=== PATIENT | male | born 1990 | race Caucasian/White ===

== ENCOUNTER 2021-09-16 10:09 | Emergency (ER) | payer OTHER ==
[2021-09-16 10:20] VITALS: BP 122/93
--- NOTE | 2021-09-16 10:27 | ED Physician Documentation ---
History of Present Illness - Stated complaint Stated Complaint: CHEMICAL EXPOSURE - Chief complaint Chief Complaint: Exposure - History obtained from History obtained from: Patient - Additonal information Additional information: 31-year-old gentleman, active duty in the [employer]. He he was sprayed by pressurized hydraulic fluid at work to the face and eyes. He is already showered and irrigated. He had burning sensation of the face and eyes but this is improved and he had shortness of breath and this is gone. Review of Systems Constitutional: reports: Reviewed and negative Ears: reports: Reviewed and negative Nose: reports: Reviewed and negative Throat: reports: Reviewed and negative PD PAST MEDICAL HISTORY - Present Medications Home Medications: Ambulatory Orders Medication Instructions Recorded Confirmed No Known Home Medications 09/16/21 09/16/21 - Allergies Allergies/Adverse Reactions: Allergies Allergy/AdvReac Type Severity Reaction Status Date / Time No Known Drug Allergies Allergy Verified 09/16/21 10:17 PD ED PE NORMAL - Vitals Vital signs reviewed: Yes - General General: Alert and oriented X 3, No acute distress - HEENT HEENT: PERRL, EOMI, Pharynx benign - Neck Neck: Supple, no meningeal sign, No bony TTP - Cardiac Cardiac: RRR, No murmur - Respiratory Respiratory: No respiratory distress, Other (Mild expiratory wheeze, declined breathing treatment since he is improving.) - Back Back: No CVA TTP, No spinal TTP - Derm Derm: Normal color, Warm and dry - Extremities Extremities: No deformity, No tenderness to palpate, No edema, No calf tenderness / cord - Neuro Neuro: Alert and oriented X 3, Normal speech Results - Vitals Vitals: Vital Signs - 24 hr 09/16/21 10:17 Temperature 37.0 C Heart Rate 78 Respiratory 19 Rate Blood Pressure 122/93 H O2 Saturation 99 Oxygen O2 Source Room air PD MEDICAL DECISION MAKING - ED course ED course: 31-year-old gentleman with chemical exposure to the face and eyes. Has already irrigated thoroughly and now his symptoms are improving. Departure - Departure Disposition: 01 Home, Self Care Clinical Impression: Chemical exposure of eye Condition: Good Record reviewed to determine appropriate education?: Yes Instructions: ED Chemical Conjunctivitis Comments: I would shower again when you return home. Return for new or worsening symptoms. Forms: Activity restrictions
== END 2021-09-16 10:34 | disposition home or self-care (01) ==
LOC: ED 10:09
DX: Z77.098 Contact with and (suspected) exposure to other hazardous, chiefly nonmedicinal, chemicals (principal)
CPT/HCPCS: 99282; 99283